=== PATIENT | male | born 1970 | race Caucasian/White ===

== ENCOUNTER 2023-05-30 08:54 | Outpatient (CLI) | payer BC, SELFPAY | END 2023-05-30 08:55 | disposition home or self-care (01) | PROVIDERS: PCP Family Medicine; Visit Provider Family Medicine | DX: Z01.818 Encounter for other preprocedural examination (principal); I10 Essential (primary) hypertension; E78.5 Hyperlipidemia, unspecified; Z12.5 Encounter for screening for malignant neoplasm of prostate | CPT/HCPCS: 80048; 80061; 84153 ==

== ENCOUNTER 2024-07-11 14:04 | Outpatient (CLI) | payer BC, SELFPAY | END 2024-07-11 14:05 | disposition home or self-care (01) | PROVIDERS: PCP Family Medicine; Visit Provider Family Medicine | DX: I10 Essential (primary) hypertension (principal); E78.5 Hyperlipidemia, unspecified; Z12.5 Encounter for screening for malignant neoplasm of prostate | CPT/HCPCS: 80048; 80061; G0103 ==

== ENCOUNTER 2024-09-12 08:03 | Outpatient (CLI) | payer BC, SELFPAY | END 2024-09-12 08:04 | disposition home or self-care (01) | LOC: NFLDREF 09-15 01:50 | PROVIDERS: PCP Family Medicine; Referring Provider Family Medicine; Visit Provider Family Medicine | DX: R53.83 Other fatigue (principal); R53.1 Weakness | CPT/HCPCS: 84403 ==

== ENCOUNTER 2025-04-24 12:12 | Outpatient (CLI) | payer BC, SELFPAY | END 2025-04-24 12:13 | disposition home or self-care (01) | PROVIDERS: PCP Family Medicine; Visit Provider Family Medicine | DX: E78.2 Mixed hyperlipidemia (principal); I10 Essential (primary) hypertension | CPT/HCPCS: 80048; 80061 ==

== ENCOUNTER 2025-05-01 08:29 | Outpatient (CLI) | payer BC, SELFPAY ==
--- NOTE | 2025-05-01 09:00 | CRLHL7_ITS ---
For Patients: As a result of the Century Cures Act, medical imaging exams and procedure reports are released immediately into your electronic medical record. You may view this report before your referring provider. If you have questions, please contact your health care provider. INDICATION: Throat pain. Laryngitis. COMPARISON: None. TECHNIQUE: CT soft tissue neck with IV contrast. Isovue 370, 107 cc IV. FINDINGS: Normal bilateral parotid and submandibular glands. Normal thyroid gland. Scattered small normal-sized cervical lymph nodes bilaterally. Largest lymph node measures 13 mm in maximal diameter at level 2 on the left. No supraclavicular spina sound Opti. Nasopharynx and oropharynx are clear. No inflammation within the parapharyngeal fat pads or retropharyngeal space. Normal thickness of the epiglottis. Normal glottis with symmetric vocal cords. Lung apices are clear. Normal alignment of the cervical spine. No prevertebral soft tissue swelling. Visualized paranasal sinuses and mastoid air cells are clear. IMPRESSION: 1. No adenopathy. 2. Normal deep soft tissues of the neck. No inflammation within the parapharyngeal fat pads or retropharyngeal space. Normal thickness of the epiglottis. 3. No prevertebral soft tissue swelling Please note that all CT scans at this facility use dose modulation, iterative reconstruction, and/or weight-based dosing when appropriate to reduce radiation dose to as low as reasonably achievable. Dictated by Gerson Vickers MD @ 05/02/2025 8:16:55 AM (Electronically Signed)
== END 2025-05-01 08:30 | disposition home or self-care (01) ==
LOC: CT 08:30
PROVIDERS: PCP Family Medicine; Visit Provider Otolaryngology
DX: R07.0 Pain in throat (principal)
CPT/HCPCS: 70491; Q9967